=== PATIENT | female | born 1955 | race Two or more races ===

== ENCOUNTER 2016-12-31 08:21 | Day surgery (SDC) | payer OTHER ==
[2016-12-30 08:01] VITALS: BMI 50.5
[~2016-12-31 08:21] MED LIST: DEXAMETHASONE SOD PHOSPHATE 10 MG/ML 1 ML VIAL IV ONE; HYDROmorphone 1 MG/ML 1 ML SYRINGE IVP PRN; LACTATED RINGERS 1,000 ML IV SCH; LIDOCAINE 1% 20 ML VIAL (10MG/ML) FOR IV START INTRADERMA PRN; ONDANSETRON 4 MG/2 ML VIAL IVP ONE; Pre Op ABX Message 1 EACH MISC MISCELLANE ONE; SCOPOLAMINE 1.5MG/72HR PATCH TRANSDERM ONE
[2016-12-31] MEDS ORDERED: ALPRAZolam 0.25 MG TAB PO ONE (08:42)
[2016-12-31] MEDS ORDERED: LIDOCAINE 1% INJ 10MG/ML (20 ML MDV) SQ ONE (09:53)
[2016-12-31] MEDS ORDERED: HEPARIN SODIUM,PORCINE 5,000 UNIT/ML 1 ML VIAL SQ ONE (10:41)
[2016-12-31] MEDS ORDERED: METHYLENE BLUE 50 MG/10 ML AMPUL MISCELLANE ONE (11:01)
[2016-12-31] MEDS ORDERED: fentaNYL (PF) 50 MCG/ML 2 ML AMP ONE (11:15)
[2016-12-31] MEDS ORDERED: MIDAZOLAM 2 MG/2 ML VIAL ONE (11:15)
[2016-12-31] MEDS ORDERED: ePHEDrine 50 MG/ML 1 ML AMP ONE (11:15)
[2016-12-31] MEDS ORDERED: SUCCINYLCHOLINE CHLORIDE VIAL 200 MG/10 ML VIAL IV ONE (11:15)
[2016-12-31] MEDS ORDERED: HYDROmorphone (PF) 1 MG/ML ONE (11:15)
[2016-12-31] MEDS ORDERED: PROPOFOL 10 MG/ML 20 ML VIAL IV ONE (11:15)
[2016-12-31] MEDS: ceFAZolin 2 GM in SODIUM CHLORIDE 0.9% 100 ML IVPB ONE ×2 (11:20→11:42)
[2016-12-31] MEDS ORDERED: BUPIVACAINE (PF) 0.25% 30 ML VIAL SQ ONE (11:41)
[2016-12-31] MEDS ORDERED: LACTATED RINGERS 1,000 ML IV ONE (12:35)
[2016-12-31 13:13] VITALS: TEMP 98
[2016-12-31] MEDS ORDERED: KETOROLAC 30 MG/ML 1 ML VIAL IVP ONE (13:13)
[2016-12-31 13:47] VITALS: RESP 16
[2016-12-31 14:30] VITALS: BP 128/64; PULSE 98
--- NOTE | 2016-12-31 15:00 | NM ---
EXAMINATION TYPE: NM sentinel node injection DATE OF EXAM: 12/31/2016 COMPARISON: NONE HISTORY: Left breast cancer TECHNIQUE AND FINDINGS: The procedure immediately following the wire localization. The procedure of s entinel lymph node injection was explained to the patient. The benefits, alternatives, and risks wer e discussed. An informed consent was then obtained. Overlying skin is cleaned with sterile alcohol. Lidocaine buffered with bicarbonate was used as anes thetic into the skin and subcutaneous tissue surrounding the nipple. Following this, 538 uCi Tc 99m Filtered Sulfur Colloid was injected into 4 equivalent doses at 12, 3, 6, and 9:00 position surroundi ng the left nipple intradermally. The injection sites were massaged by nuclear technician for 10 minutes after injection. T he patient tolerated the procedure well without any immediate complication. The patient was kept in the radiology department for short stay after the procedure and then taken to surgery. IMPRESSION: Left breast radiotracer injection for sentinel node localization as above.
--- NOTE | 2017-01-02 10:43 | P.OP ---
Date of Procedure: 12/31/16 Preoperative Diagnosis: Infiltrating ductal carcinoma of the left breast. Postoperative Diagnosis: Infiltrating ductal carcinoma left breast with the negative left axillary sentinel lymph node for metastases. Procedure(s) Performed: Left breast lumpectomy with needle localization left axillary sentinel lymph node biopsy. Implants: Anesthesia: DAVIEA Surgeon: Noah Carlos Estimated Blood Loss (ml): 50 Pathology: other (Left breast mass and left axillary sentinel lymph node) Condition: stable Disposition: PACU Indications for Procedure: Invasive left breast CA by mammotome core biopsy. Operative Findings: Left breast the Ca for left axillary sentinel lymph node for metastases. Description of Procedure: With the patient supine the left breast chest wall and axilla and upper arm were prepped with Betadine and draped. The left axillary sentinel lymph node was identified with the [place] counter. Local anesthetic was infiltrated into the overlying skin and subcutaneous tissues. A vertical incision was made the over to site and deepened through the copious subcutaneous fat. The procedure was a little difficult because of her obesity. Eventually identified evidence of any significant background count. Frozen section revealed no evidence of metastatic disease. The wound was closed with interrupted 4-0 Vicryl for the subcutaneous tissues and 4-0 Monocryl subcuticular suture for the skin. She was turned to the breast. Local anesthetic was infiltrated at the wire insertion site. The lesion was located in the upper outer quadrant at around the 2 o'clock position. Oblique incision was made at the wire insertion site and deepened through the skin and subcutaneous tissues. Wide excision of the breast tissue around the wire was accomplished. Specimen mammography confirmed the abnormality within the specimen. Good hemostasis was good and the field was dry. Clips were placed circumferentially in the bed of the tumor site. Was then achieved with interrupted 4-0 Vicryl for the subcutaneous tissues and the portal Monocryl subcuticular suture and Steri-Strips for both sites. Pressure dressing was then applied.
--- NOTE | 2017-01-05 16:10 | MM ---
EXAMINATION TYPE: MG pre op needle loc LT DATE OF EXAM: 12/31/2016 COMPARISON: 10/13/2016 mammogram CLINICAL HISTORY: Abnormal mammogram TECHNIQUE: Needle localization with wire placement and surgical excision of area of concern in the left breast. FINDINGS: The procedure of needle localization with wire placement and than surgical excision was explained to the patient. Benefits, alternatives, and risks were discussed. An informed consent was then obtained. There appear to be clip migration from the location of the biopsy. The targeted biopsy site was utilized as the target for this needle localization. Nondisplaced the clip somewhat away from needle localization. The shortest pathway for procedure was chosen. Shortest pathway was lateral approach. The overlying skin was prepped and draped in usual sterile fashion. Lidocaine buffered with bicarbonate was used as anesthetic into the skin and subcutaneous tissue up to the level of area of concern. A 9 cm needle was used. It was placed via a lateral approach under mammographic guidance. Subsequent 90 degrees mammogram show the needle to be in satisfactory position relative to the targeted area. At this point, wire was placed and the needle was withdrawn. The wire was fixed to patient's skin. Images were marked for surgeon. The patient tolerated the procedure well without any immediate complication. The patient was kept in the radiology department for short stay after the procedure and then taken to surgery for surgical excision. Targeted density and wire are identified in specimen mammogram. The clip is within the specimen. The patient was kept in hospital for short stay after the procedure and then discharged home in stable condition. IMPRESSION: 1. Successful wire localization and excision. This includes the core marker and the area targeted prior biopsy. Pathology Results: Malignant A. LYMPH NODE, SENTINEL NODE #1, BIOPSY: LYMPH NODE NEGATIVE FOR METASTASIS. CYTOKERATIN 7 AND LOUISE IMMUNOHISTOCHEMICAL STAINS ARE CONFIRMATORY (CONTROLS APPROPRIATE). B. BREAST, LEFT, IMAGE GUIDED WIRE LOCALIZATION AND RESECTION: BIOPSY SITE CHANGE WITH RESIDUAL INVASIVE DUCTAL CARCINOMA AND DUCT CARCINOMA IN SITU. PROLIFERATIVE FIBROCYSTIC CHANGE WITH FOCAL DUCT ECTASIA. Recommendation Appropriate oncologic management. MTDD
--- NOTE | 2017-01-05 16:13 | MM ---
EXAMINATION TYPE: MG surgical specimen LT DATE OF EXAM: 12/31/2016 COMPARISON: 12/31/2016 targeting mammogram HISTORY: Previous abnormal biopsy results TECHNIQUE: Single specimen mammogram FINDINGS: The area targeted is within the specimen. The surgical clip is within the specimen. The wire and tip are within the specimen. IMPRESSION: 1. Successful excision from wire localization. Recommendation Appropriate oncologic treatment. MTDD
== END 2016-12-31 14:36 | disposition home or self-care (01) ==
LOC: OR 08:21
PROVIDERS: ATTEND Surgery
DX: C50.412 Malignant neoplasm of upper-outer quadrant of left female breast (principal); I10 Essential (primary) hypertension; E78.5 Hyperlipidemia, unspecified; G47.33 Obstructive sleep apnea (adult) (pediatric); Z99.89 Dependence on other enabling machines and devices; E11.9 Type 2 diabetes mellitus without complications; Z79.84 Long term (current) use of oral hypoglycemic drugs; F32.9 Major depressive disorder, single episode, unspecified; Z79.899 Other long term (current) drug therapy
CPT/HCPCS: 76098; 19281; 38792; 19301; 38500; A9541; J2250; J0330; J1644; J1100; J0690; J2405; J2001; J3010; J1885; J1170; J2704; 88307; 88331; 88341; 88342

== ENCOUNTER 2017-01-14 09:45 | Day surgery (SDC) | payer OTHER ==
[2017-01-12 08:35] VITALS: BMI 50.3
[~2017-01-14 09:45] MED LIST changes: -LIDOCAINE 1% 20 ML VIAL (10MG/ML) FOR IV START INTRADERMA PRN; +MIDAZOLAM 2 MG/2 ML VIAL IV PRN; -Pre Op ABX Message 1 EACH MISC MISCELLANE ONE; +ceFAZolin 3 GM in SODIUM CHLORIDE 0.9% 100 ML IVPB ONE
[2017-01-14] MEDS ORDERED: LIDOCAINE 1% 20 ML VIAL (10MG/ML) FOR IV START INTRADERMA ONE (10:34)
[2017-01-14 10:46] LABS: Glucose,Whole Blood 116 mg/dL (75-99)
[2017-01-14] MEDS ORDERED: BUPIVACAIN-EPI 0.5%-1:200,000 30 ML VIAL SQ ONE (11:00)
[2017-01-14] MEDS ORDERED: ePHEDrine 50 MG/ML 1 ML AMP ONE (11:00)
[2017-01-14] MEDS ORDERED: fentaNYL (PF) 50 MCG/ML 2 ML AMP ONE (11:00)
[2017-01-14] MEDS ORDERED: LIDOCAINE 1% INJ 10MG/ML (20 ML MDV) ONE (11:00)
[2017-01-14] MEDS ORDERED: SUCCINYLCHOLINE CHLORIDE 100 MG/5 ML SYR IV ONE (11:00)
[2017-01-14] MEDS ORDERED: PROPOFOL 10 MG/ML 20 ML VIAL IV ONE (11:00)
[2017-01-14] MEDS ORDERED: MIDAZOLAM 2 MG/2 ML VIAL ONE (11:00)
--- NOTE | 2017-01-14 12:20 | P.OP ---
Date of Procedure: 01/14/17 Preoperative Diagnosis: Invasive ductal carcinoma of the left breast with the positive margins Postoperative Diagnosis: Same Procedure(s) Performed: Wide excision CA of the left breast upper outer quadrant. Implants: Anesthesia: DAVIEA Surgeon: Noah Carlos Estimated Blood Loss (ml): 20 Pathology: other (breast tissue) Disposition: PACU Indications for Procedure: The patient is a 61-year-old white female who had a left breast lumpectomy with sentinel node biopsy last week. Path report the confirmed invasive ductal carcinoma with DCIS with positive margins multiple areas. Wide excision was therefore recommended and informed consent was obtained procedure having being explained to her including potential complication particular bleeding infection hematoma seroma of possible need for further surgery if margins are still positive she understood and agree to proceed. Operative Findings: Previous biopsy cavity with some seroma fluid Description of Procedure: The left breast and chest wall were prepped with Betadine and draped after induction of general endotracheal anesthesia. Incision was made along the previous scar and wide excision of the breast tissue to include and around the previous biopsy cavity was excised down to the underlying muscle fascia. Ellipse of skin was also included. The wound was thoroughly irrigated. Hemostasis was good and the field was dry. Closure was then achieved with interrupted 4-0 Vicryl subcutaneous tissues and 4-0 Monocryl subcuticular suture and Steri-Strips for the skin. Pressure dressing was applied. All counts were correct. Blood loss was approximately 20 mL's. The patient remained stable was transferred to the recovery room in good and stable condition. Patient was discharged to home this afternoon. Diet high fiber. Home meds. Remove dressing in 2 days. Follow-up in the office in about a week. May shower in 2 days. Plan - Discharge Summary New Discharge Prescriptions: No Action buPROPion HCL [Wellbutrin XL] 300 mg PO DAILY Glimepiride [Amaryl] 2 mg PO AC-BRKFST metFORMIN HCL [Glucophage] 500 mg PO DAILY Levothyroxine Sodium [Synthroid] 0.2 mg PO DAILY Levothyroxine Sodium [Synthroid] 0.25 mg PO DAILY Atorvastatin [Lipitor] 10 mg PO HS Olmesartan/Amlodipin/Hcthiazid [Tribenzor 40-5-25 mg Tablet] 1 each PO DAILY Discharge Medication List Atorvastatin [Lipitor] 10 mg PO HS 12/30/16 [History] Glimepiride [Amaryl] 2 mg PO AC-BRKFST 12/30/16 [History] Levothyroxine Sodium [Synthroid] 0.2 mg PO DAILY 12/30/16 [History] Levothyroxine Sodium [Synthroid] 0.25 mg PO DAILY 12/30/16 [History] Olmesartan/Amlodipin/Hcthiazid [Tribenzor 40-5-25 mg Tablet] 1 each PO DAILY [History] buPROPion HCL [Wellbutrin XL] 300 mg PO DAILY 12/30/16 [History] metFORMIN HCL [Glucophage] 500 mg PO DAILY 12/30/16 [History]
[2017-01-14 12:29] VITALS: TEMP 97.2
[2017-01-14 12:41] LABS: Glucose,Whole Blood 129 mg/dL (75-99)
[2017-01-14] MEDS ORDERED: HYDROcodone/APAP 5-325MG 1 EACH TAB PO STA (13:17)
[2017-01-14 13:55] VITALS: RESP 20
[2017-01-14 14:17] VITALS: BP 134/70; PULSE 91
== END 2017-01-14 14:28 | disposition home or self-care (01) ==
LOC: OR 09:45
PROVIDERS: ATTEND Surgery
DX: C50.412 Malignant neoplasm of upper-outer quadrant of left female breast (principal); D05.12 Intraductal carcinoma in situ of left breast; N60.12 Diffuse cystic mastopathy of left breast; I10 Essential (primary) hypertension; E78.5 Hyperlipidemia, unspecified; E11.9 Type 2 diabetes mellitus without complications; G47.00 Insomnia, unspecified; F32.9 Major depressive disorder, single episode, unspecified; E89.0 Postprocedural hypothyroidism; Z79.84 Long term (current) use of oral hypoglycemic drugs; Z79.899 Other long term (current) drug therapy
CPT/HCPCS: 84132; 19301; J2250; J1100; J0690; J2405; J2001; J3010; J0330; J2704

== ENCOUNTER → 2019-02-27 | Outpatient (CLI) | payer MEDICARE, OTHER ==
--- NOTE | 2019-02-28 09:27 | MM ---
Reason for exam: additional evaluation requested from prior study. Last mammogram was performed 1 year and 1 month ago. History: Patient is postmenopausal and has history of breast cancer at age 61. Malignant MG pre op needle loc LT of the left breast, December 31, 2016. Lumpectomy of the left breast, December 31, 2016. Chemotherapy, 2017. Radiation therapy of the left breast, 2017. Taking antineoplastic beginning at age 61. Physical Findings: Nurse did not find any significant physical abnormalities on exam. MG 3D Diag Mammo W/Cad LENIN Bilateral CC, MLO, and XCCL view(s) were taken. CV view(s) were taken of the right breast. ML, CC with magnification, and ML with magnification view(s) were taken of the left breast. Prior study comparison: January 25, 2018, mammogram. October 13, 2016, mammogram. September 23, 2016, mammogram. There are scattered fibroglandular densities. There is surrounding fat necrosis around the left lumpectomy site and one linear adjacent calcification, 6 month follow up recommended. There are also grouped calcifications measuring 1.1cm in the left far upper outer quadrant, possibly DCIS in a lymph node or fat necrosis on magnification views. These appear pleomorphic but overall in a oval configuration. These results were verbally communicated with the patient and result sheet given to the patient on 02/27/19. ASSESSMENT: Suspicious, BI-RAD 4 RECOMMENDATION: Stereotactic core biopsy of the left breast. Called Dr. Xie with mammographic findings. Biopsy scheduled for 03/06/19 at 8:00. PRELIMINARY REPORT CALLED AND FAXED TO DR. XIE ON 02/27/19.
== END | disposition home or self-care (01) ==
LOC: RADMAMWWP 09:08
PROVIDERS: ATTEND Internal Medicine Hematology & Oncology
DX: Z08 Encounter for follow-up examination after completed treatment for malignant neoplasm (principal); Z85.3 Personal history of malignant neoplasm of breast
CPT/HCPCS: 77066; G0279; 77062

== ENCOUNTER → 2019-03-06 | Day surgery (SDC) | payer MEDICARE, OTHER ==
[2019-03-06 07:20] VITALS: RESP 16; BMI 46.0
[2019-03-06 09:53] VITALS: BP 128/74; PULSE 87; TEMP 98.2
--- NOTE | 2019-03-06 10:00 | MM ---
EXAMINATION TYPE: MG stereo VAD BX LT DATE OF EXAM: 03/06/2019 COMPARISON: Prior mammogram February 27, 2019 and older mammograms. CLINICAL HISTORY: History of left-sided breast cancer treated 2017 with new abnormal mammogram TECHNIQUE: Stereotactic guided core biopsy of left breast. FINDINGS: The procedure of stereotactic guided core biopsy was explained to the patient. Benefits, a lternatives, and risks were discussed. An informed consent was then obtained. The [facility] pathway for biopsy was chosen. [facility] pathway was lateral approach. I performed the localization, then performed the remainder of the procedure. Overlying skin is cleansed with Betadin e. Lidocaine is used as anesthetic into the skin and subcutaneous tissue. Lidocaine with epinephrine is used as anesthetic into the deeper tissue during sampling. A vacuum assisted biopsy gun was used t o obtain multiple core samples. The patient tolerated the procedure well without any immediate complication. The patient was kept in the radiology department for short stay after the procedure and then discharged home in stable condi tion. Targeted calcifications are identified in specimen mammogram. Post biopsy mammogram shows the clip to appear in satisfactory position relative to the targeted area of concern on the preprocedure images. IMPRESSION: SUCCESSFUL, UNCOMPLICATED STEREOTACTIC GUIDED CORE BIOPSY OF AREA OF CONCERN IN THE LEFT BREAST, FULL PATHOLOGY RESULTS TO FOLLOW. Intermediate index of suspicion noted at time of procedure. Suspect fat necrosis over newly developin g DCIS.
== END | disposition home or self-care (01) ==
LOC: RADMAMWWP 07:00
PROVIDERS: ATTEND Internal Medicine Hematology & Oncology
DX: D24.2 Benign neoplasm of left breast (principal); Z92.3 Personal history of irradiation; Z92.21 Personal history of antineoplastic chemotherapy; Z85.3 Personal history of malignant neoplasm of breast
CPT/HCPCS: 88305; 19081; A4648; J2001

== ENCOUNTER → 2019-06-12 | Outpatient (CLI) | payer MEDICARE, OTHER ==
--- NOTE | 2019-06-12 13:01 | BD ---
EXAMINATION TYPE: Axial Bone Density DATE OF EXAM: 06/12/2019 COMPARISON: 06.22.2017 CLINICAL HISTORY: 64 YR OLD FEMALE....ICD-10 CODE: 06.22.2017 Height: 64.5 Weight: 262 FRAX RISK QUESTIONS: NOTHING ADDITIONAL TO NOTE HERE RISK FACTORS HISTORY OF: Postmenopausal woman: YES, AT AGE 47 YRS OLD Hyperparathyroidism: NO Adrenal Insufficiency: NO MEDICATIONS: Prednisone or other steroids: ON AND OFF NOT REGULARLY Thyroid Medications: YES, SYNTHROID, 11 YRS Additional Medications: CALCIUM AND VIT D, BP MEDS, WELLBUTRIN, HX OF CHEMO AND RADIATION/LT BR CA, S TATIN FOR CHOLESTEROL, LETROZOLE Additional History: HX OF LT BR CANCER DECEMBER 2016 , CHOLESTEROL, HYPERTENSION EXAM MEASUREMENTS: Bone mineral densitometry was performed using the [employer] System. Bone mineral density as measured about the Lumbar spine is: ----- L1-L4(G/cm2): 1.245 T Score Values are as follows: ----- L1: 2.6 ----- L2: 0.1 ----- L3: 0.3 ----- L4: -0.4 ----- L1-L4: 0.5 Bone mineral density has: Decreased -10.1% since study of: 06.22.2017 Bone mineral density about the R hip (g/cm2): 0.890 Bone mineral density about the L hip (g/cm2): 0.892 T Score values are as follows: -----R Neck: -1.4 -----L Neck: -1.4 -----R Total: -0.9 -----L Total: -0.9 Bone mineral density has: Decreased -8.6% since study of: 06.22.2017 FRAX%s: THERE IS A 7.2% CHANCE FOR A MAJOR OSTEOPOROTIC FX AND A 0.6% FOR HIP.....PROBABILITY FOR F X IN 10 YRS TIME IMPRESSION: No evidence for osteoporosis or osteopenia at this time. NOTE: T-SCORE=SD OF THE YOUNG ADULT MEAN.
== END | disposition home or self-care (01) ==
LOC: RADBDWWP 10:20
PROVIDERS: ATTEND Internal Medicine Hematology & Oncology
DX: N95.1 Menopausal and female climacteric states (principal); C50.412 Malignant neoplasm of upper-outer quadrant of left female breast; Z79.890 Hormone replacement therapy
CPT/HCPCS: 77080

== ENCOUNTER → 2019-09-20 | Outpatient (CLI) | payer MEDICARE, OTHER ==
--- NOTE | 2019-09-20 15:05 | MM ---
Reason for exam: follow-up at short interval from prior study. Last mammogram was performed 7 months ago. History: Patient is postmenopausal and has history of breast cancer at age 61. Benign MG stereo VAD BX LT of the left breast, March 06, 2019. Malignant MG pre op needle loc LT of the left breast, December 31, 2016. Lumpectomy of the left breast, December 31, 2016. Chemotherapy, 2017. Radiation therapy of the left breast, 2017. Taking antineoplastic beginning at age 61. Took other hormone for 2 years 6 months. Physical Findings: Nurse did not find any significant physical abnormalities on exam. MG 3D Diag Mammo W/Cad LT CC and MLO view(s) were taken of the left breast. Prior study comparison: February 27, 2019, bilateral MG 3d diag mammo w/cad LENIN. January 25, 2018, mammogram. There are scattered fibroglandular densities. Centrally lucent fat necrosis at and adjacent to (lateral) lumpectomy site. Post therapy change on the left. Post biopsy change of the left upper outer quadrant at far posterior depth. These results were verbally communicated with the patient and result sheet given to the patient on 09/20/19. ASSESSMENT: Benign, BI-RAD 2 RECOMMENDATION: Follow-up diagnostic mammogram of both breasts in 6 months. Back on schedule for February 2020.
== END | disposition home or self-care (01) ==
LOC: RADMAMWWP 12:44
PROVIDERS: ATTEND Internal Medicine Hematology & Oncology
DX: Z08 Encounter for follow-up examination after completed treatment for malignant neoplasm (principal); Z85.3 Personal history of malignant neoplasm of breast
CPT/HCPCS: 77065; G0279; 77061

== ENCOUNTER → 2020-03-07 | Outpatient (CLI) | payer MEDICARE, OTHER ==
--- NOTE | 2020-03-07 14:06 | MM ---
Reason for exam: additional evaluation requested from prior study. Last mammogram was performed 6 months ago. History: Patient is postmenopausal and has history of breast cancer at age 61. Benign MG stereo VAD BX LT of the left breast, March 06, 2019. Malignant MG pre op needle loc LT of the left breast, December 31, 2016. Lumpectomy of the left breast, December 31, 2016. Chemotherapy, 2017. Radiation therapy of the left breast, 2017. Taking antineoplastic beginning at age 61. Took other hormone for 2 years 6 months. Physical Findings: Nurse did not find any significant physical abnormalities on exam. MG 3D Diag Mammo W/Cad LENIN Bilateral CC, MLO, and XCCL view(s) were taken. Prior study comparison: September 20, 2019, left breast MG 3d diag mammo w/cad LT. February 27, 2019, bilateral MG 3d diag mammo w/cad LENNI. There are scattered fibroglandular densities. Finding #1: There is skin thickening and architectural distortion in the upper outer quadrant of the left breast. Finding #2: There are typically benign calcifications. No significant changes in finding since September 20, 2019 and February 27, 2019. These results were verbally communicated with the patient and result sheet given to the patient on 03/07/20. ASSESSMENT: Benign, BI-RAD 2 RECOMMENDATION: Follow-up diagnostic mammogram of both breasts in 1 year.
== END | disposition home or self-care (01) ==
LOC: RADMAMWWP 12:44
PROVIDERS: ATTEND Internal Medicine Hematology & Oncology
DX: R92.8 Other abnormal and inconclusive findings on diagnostic imaging of breast (principal); Z85.3 Personal history of malignant neoplasm of breast
CPT/HCPCS: 77066; G0279; 77062

== ENCOUNTER → 2021-03-09 | Outpatient (CLI) | payer MEDICARE, OTHER ==
--- NOTE | 2021-03-09 11:25 | MM ---
Reason for exam: additional evaluation requested from prior study. Last mammogram was performed 1 year ago. History: Patient is postmenopausal, has history of breast cancer at age 61, and history of other cancer. Benign MG stereo VAD BX LT of the left breast, March 06, 2019. Malignant MG pre op needle loc LT of the left breast, December 31, 2016. Lumpectomy of the left breast, December 31, 2016. Chemotherapy, 2017. Radiation therapy of the left breast, 2017. Taking antineoplastic beginning at age 61. Took other hormone for 2 years 6 months. Physical Findings: Nurse did not find any significant physical abnormalities on exam. MG 3D Diag Mammo W/Cad LENIN Bilateral CC and MLO view(s) were taken. Prior study comparison: March 07, 2020, bilateral MG 3d diag mammo w/cad LENIN. September 20, 2019, left breast MG 3d diag mammo w/cad LT. There are scattered fibroglandular densities. Stable post operative lumpectomy changes left breast. No significant new findings when compared with previous films. These results were verbally communicated with the patient and result sheet given to the patient on 03/09/21. ASSESSMENT: Benign, BI-RAD 2 RECOMMENDATION: Follow-up diagnostic mammogram of both breasts in 1 year.
== END | disposition home or self-care (01) ==
LOC: RADMAMWWP 10:42
PROVIDERS: ATTEND Internal Medicine Hematology & Oncology
DX: Z08 Encounter for follow-up examination after completed treatment for malignant neoplasm (principal); Z85.3 Personal history of malignant neoplasm of breast
CPT/HCPCS: 77066; G0279; 77062

== ENCOUNTER → 2021-07-20 | Outpatient (CLI) | payer MEDICARE, OTHER ==
--- NOTE | 2021-07-20 14:24 | BD ---
EXAMINATION TYPE: Axial Bone Density DATE OF EXAM: 07/20/2021 COMPARISON: 06.12.2019 CLINICAL HISTORY: 66 YR OLD FEMALE.........ICD-10 CODE: Z79.890 MENOPAUSAL Height: 61.5 Weight: 274 FRAX RISK QUESTIONS: NOTHING ADDITIONAL TO ADD HERE RISK FACTORS HISTORY OF: Postmenopausal woman: YES, AT AGE 47 YRS OLD Hyperparathyroidism: NO Adrenal Insufficiency: NO MEDICATIONS: Thyroid Medications: YES, SYNTHROID FOR ABOUT 13 YRS Additional Medications: CALCIUM AND VIT D, BP MEDS, WELLBUTRIN, HX OF CHEMO AND RADIATION, LT BR CA NCER, STATIN FOR CHOLESTEROL, LETROZOLE, Additional History: HX OF LT BREAST CANCER, ANXIETY, CHOLESTEROL, EXAM MEASUREMENTS: Bone mineral densitometry was performed using the [employer] System. Bone mineral density as measured about the Lumbar spine is: ----- L1-L4(G/cm2): 1.190 T Score Values are as follows: ----- L1: 1.5 ----- L2: -0.7 ----- L3: -0.5 ----- L4: -0.1 ----- L1-L4: 0.1 Bone mineral density has: Decreased -3.9 since study of: 06.12.2019 Bone mineral density about the R hip (g/cm2): 0.831 Bone mineral density about the L hip (g/cm2): 0.821 T Score values are as follows: -----R Neck: -1.7 -----L Neck: -1.7 -----R Total: -1.4 -----L Total: -1.5 Bone mineral density has: Decreased -7.3 since study of: 06.12.2019 FRAX%S: THERE IS A 8.1% CHANCE FOR A MAJOR OSTEOPOROTIC FX AND A 1.0% FOR HIP.......PROBABILITY FO R FX IN 10 YRS TIME IMPRESSION: Osteopenia (T Score between -2.5 and -1) remains present. Bone density is decreased from prior. There remains slightly increased risk of fracture and the patient may be considered for treatment. Re-Screen 2-5 years. NOTE: T-SCORE=SD OF THE YOUNG ADULT MEAN.
== END | disposition home or self-care (01) ==
LOC: RADBDWWP 13:09
PROVIDERS: ATTEND Internal Medicine Hematology & Oncology
DX: C50.412 Malignant neoplasm of upper-outer quadrant of left female breast (principal); M85.80 Other specified disorders of bone density and structure, unspecified site; Z79.890 Hormone replacement therapy
CPT/HCPCS: 77080

== ENCOUNTER 2022-03-16 13:06 | Day surgery (SDC) | payer MEDICARE, OTHER ==
[2022-03-15 14:54] VITALS: BMI 48.6
[~2022-03-16 13:06] MED LIST changes: +ACETAMINOPHEN TAB 500 MG TAB PO PRN; -DEXAMETHASONE SOD PHOSPHATE 10 MG/ML 1 ML VIAL IV ONE; +DEXAMETHASONE SOD PHOSPHATE 4 MG/ML 1 ML VIAL IV ONE; +HEPARIN SODIUM,PORCINE/PF 5,000 UNIT/0.5 ML SYRINGE SQ PRN; +HYDROmorphone 0.5 MG/0.5 ML SYRINGE IVP PRN; -HYDROmorphone 1 MG/ML 1 ML SYRINGE IVP PRN; +Pre Op ABX Message 1 EACH MISC MISCELLANE ONE; -SCOPOLAMINE 1.5MG/72HR PATCH TRANSDERM ONE; -ceFAZolin 3 GM in SODIUM CHLORIDE 0.9% 100 ML IVPB ONE
[2022-03-16] MEDS ORDERED: BUPIVACAIN-EPI 0.25%-1:200,000 30 ML VIAL SQ ONE ×2 (14:16→14:57)
[2022-03-16] MEDS ORDERED: ePHEDrine 50 MG/ML 1 ML VIAL ONE (14:17)
[2022-03-16] MEDS ORDERED: LIDOCAINE 2% INJ 20 MG/ML (2 ML VIAL) ONE (14:17)
[2022-03-16] MEDS ORDERED: PHENYLEPHRINE-0.9% NACL SYG 1,000 MCG/10 ML SYRINGE ONE (14:17)
[2022-03-16] MEDS ORDERED: PROPOFOL 10 MG/ML 20 ML VIAL IV ONE (14:17)
[2022-03-16] MEDS ORDERED: fentaNYL (PF) 50 MCG/ML 2 ML AMP ONE (14:17)
[2022-03-16] MEDS ORDERED: MIDAZOLAM 2 MG/2 ML VIAL ONE (14:17)
[2022-03-16] MEDS ORDERED: SODIUM CHLORIDE 0.9% 100 ML with ceFAZolin 2,000 MG IV ONE ×2 (14:40)
[2022-03-16] MEDS ORDERED: LACTATED RINGERS 1,000 ML IV ONE (15:08)
[2022-03-16] MEDS ORDERED: traMADol 50 MG TAB PO PRN (15:18)
[2022-03-16] MEDS ORDERED: NALOXONE 0.4 MG/ML 1 ML VIAL IV PRN (15:18)
--- NOTE | 2022-03-16 15:18 | P.OP ---
Date of Procedure: 03/16/22 Procedure(s) Performed: PREOPERATIVE DIAGNOSIS: Right thigh mass POSTOPERATIVE DIAGNOSIS: Same PROCEDURE: Excision right thigh mass with intermediate closure SURGEON: Alex EBL: 25 mL ANESTHESIA: Gen. COMPLICATIONS: None OPERATIVE PROCEDURE: Patient placed in the operating table in the supine position. The patient was placed under general anesthesia. Right anterior thigh prepped and draped sterilely. An elliptical incision was made in a horizontal fashion around the horizontally shaped mass in the distal anterior lateral thigh on the right. This measured 5 x 4 cm in size. The skin incision was made using the scalpel and the subcutaneous tissues were divided using both the scalpel and electrocautery. I felt that grossly the inferior margin was close and at that time took an additional inferior margin including both skin and full-thickness subcutaneous tissues down to the fascia. The original specimen was painted on the inferior margin a green color. The new margin on the newly obtained inferior margin was painted that same color. These were both sent to pathology for permanent sectioning. Flaps are raised superiorly and inferiorly above the level of the fascia. The subcutaneous tissues were then closed using interrupted 20 and 3-0 Vicryl sutures. The skin was closed using a running 4-0 nylon suture. Sterile dressings were then applied. DISPOSITION: Stable to recovery room
[2022-03-16 15:28] VITALS: TEMP 97.1
[2022-03-16 15:48] VITALS: RESP 16
[2022-03-16 15:56] VITALS: PULSE 90
[2022-03-16 16:14] VITALS: BP 109/86
== END 2022-03-16 16:30 ==
LOC: OR 13:06
PROVIDERS: ATTEND Surgery
DX: R22.41 Localized swelling, mass and lump, right lower limb (principal); I10 Essential (primary) hypertension; E11.69 Type 2 diabetes mellitus with other specified complication; E78.5 Hyperlipidemia, unspecified; G47.33 Obstructive sleep apnea (adult) (pediatric); E03.9 Hypothyroidism, unspecified; Z79.899 Other long term (current) drug therapy; Z79.890 Hormone replacement therapy; Z85.3 Personal history of malignant neoplasm of breast
CPT/HCPCS: 27339; 88342; 88307; 88341; J2250; J1100; J2405; J0690; J3010; J2370; J2704; J1644; J2001

== ENCOUNTER → 2022-03-17 | Outpatient (CLI) | payer MEDICARE, OTHER ==
--- NOTE | 2022-03-18 08:05 | MM ---
Reason for Exam: Screening (asymptomatic). Last screening mammogram was performed 12 month(s) ago. Patient History: Menarche at age 13. Postmenopausal. Breast cancer, age 61. Other cancer. Previous chest radiation therapy at age 61. Previous chemotherapy at age 61. 12/31/2016, Lumpectomy on the Left side. 03/06/2019, Benign Core Biopsy on the left side. 12/31/2016, Malignant Core Biopsy on the left side. 2017, Chemotherapy. 2016, Radiation Therapy on the left side. Prior Study Comparison: 09/23/2016 Screening Mammogram, Unknown. 10/13/2016 Screening Mammogram, Unknown. 01/25/2018 Screening Mammogram, Unknown. 02/27/2019 Bilateral Diagnostic Mammogram, [facility]. 09/20/2019 Left Diagnostic Mammogram, [facility]. 03/07/2020 Bilateral Diagnostic Mammogram, [facility]. 03/09/2021 Bilateral Diagnostic Mammogram, [facility]. Tissue Density: There are scattered fibroglandular densities. Findings: Analyzed By CAD. Persistent distortion with surgical clips, dystrophic calcification, and skin retraction upper outer aspect left breast corresponding to posttreatment changes. There is no suspicious group of microcalcifications or new suspicious mass in either breast. Overall Assessment: Probably benign, BI-RAD 3 Management: Screening Mammogram of both breasts in 1 year. A clinical breast exam by your physician is recommended on an annual basis and results should be correlated with mammographic findings. Electronically signed and approved by: eLno Navarro M.D.
== END | disposition home or self-care (01) ==
LOC: RADMAMWWP 09:52
PROVIDERS: ATTEND Internal Medicine Hematology & Oncology
DX: Z12.31 Encounter for screening mammogram for malignant neoplasm of breast (principal)
CPT/HCPCS: 77063; 77067

== ENCOUNTER → 2022-04-21 | Outpatient (CLI) | payer MEDICARE, OTHER ==
--- NOTE | 2022-04-21 18:19 | CT ---
EXAMINATION TYPE: CT ChestAbdPelvis w con DATE OF EXAM: 04/21/2022 INDICATION: obs for mets. hx of sarcoma and L breast ca COMPARISON: Mammogram 03/09/2021 CT DLP: 3049.20 mGycm CONTRAST: Performed with Oral Contrast and with IV Contrast, patient injected with 70 mL of Isovue 300. TECHNIQUE: Axial images at 5 mm thick sections. Reconstructed images in the coronal plane. Delayed images through the kidneys. FINDINGS: CT CHEST: Soft tissues of the chest abdomen and pelvis appear normal. 1.2 cm spiculated density withi n the left axillary region appears to be postsurgical in nature. Portion of the thyroid visualized is normal. No suspicious lung nodules or focal infiltrates are present. No enlarged mediastinal or hilar adenopathy is evident. The ascending aorta diameter at the level of the main pulmonary artery is 3.7 cm. The main pulmonary artery diameter at the bifurcation is 3.6 cm. Very minimal coronary artery calcifications present. CT ABDOMEN: Liver: Normal. Note is made of loops of bowel anterior to the liver which can contribute to abdominal pain. Spleen: Normal Pancreas: There is fatty infiltration to the atrophic pancreas. Adrenal glands: The adrenal glands are normal. Gallbladder: Normal Kidneys: No masses are evident. No hydronephrosis is present. No cysts are present. Delayed images were obtained through the kidneys, which remain unremarkable. Aorta: Vascular calcification is within the aorta. Inferior vena cava: Normal. CT PELVIS: Loops of bowel within the abdomen and pelvis are normal. Mild diverticulosis without acute diverticul itis is present within the sigmoid colon There are loops of bowel which are incompletely distended or lack oral contrast limiting their evaluation. Appendix: Normal as visualized. Urinary bladder: Normal. Genitourinary structures: Uterus appears normal for the patient's age. The adnexa appear unremarkable . Osseous structures: No suspicious lytic or sclerotic lesions. Facet hypertrophy is within the lumbar spine. IMPRESSIONS: 1. No suspicious changes to suggest recurrent or metastatic neoplasm. 2. Mild diverticulosis without acute diverticulitis.
== END | disposition home or self-care (01) ==
LOC: RADCTMAIN 10:55
PROVIDERS: ATTEND Internal Medicine Hematology & Oncology
DX: K57.90 Diverticulosis of intestine, part unspecified, without perforation or abscess without bleeding (principal)
CPT/HCPCS: 82565; 84520; 71260; 74177; 36415; Q9967

== ENCOUNTER → 2022-10-29 | Outpatient (CLI) | payer MEDICARE, OTHER ==
--- NOTE | 2022-10-29 17:18 | CT ---
EXAMINATION TYPE: CT ChestAbdPelvis wo con CT DLP: 1944.6 mGycm, Automated exposure control for dose reduction was used. DATE OF EXAM: 10/29/2022 3:14 PM COMPARISON: CT chest abdomen pelvis 04/21/2022. CLINICAL INDICATION:Female, 67 years old with history of C49.9; PHH, F/U scan for hx of breast cancer . Technique: Multiple axial images of the chest, abdomen, and pelvis were obtained without administrati on of contrast. Two-dimensional coronal and sagittal reconstructions were obtained. Findings: CHEST: Evaluation is limited due to lack of intravenous contrast. LUNGS/ PLEURA: No pleural effusion, pneumothorax, or focal consolidation. Linear scarring or atelecta sis within the bilateral lower lobes. No suspicious pulmonary nodule or mass. AIRWAY: Patent and unremarkable.. HEART: Mildly enlarged. No pericardial effusion.. Mild coronary arterial calcifications. Mitral annul us calcifications.. MEDIASTINUM: No gross evidence of adenopathy. VASCULATURE: No aortic aneurysm. MUSCULOSKELETAL: No acute osseous abnormalities. No aggressive osseous lesion. SOFT TISSUES/LYMPH NODES: No axillary adenopathy. Stable postsurgical changes of the left breast. LOWER NECK: No significant findings. ABDOMEN: ABDOMEN LIVER: Unremarkable noncontrast appearance. GALLBLADDER AND BILE DUCTS: Unremarkable. PANCREAS: Fatty infiltration. SPLEEN: Unremarkable noncontrast appearance. ADRENAL GLANDS: Unremarkable noncontrast appearance. KIDNEYS AND URETERS: No evidence of hydronephrosis or renal calculus. Similar nonspecific bilateral p erinephric fat stranding. PELVIS BLADDER: Incompletely distended but grossly unremarkable. REPRODUCTIVE: Unremarkable noncontrast appearance. ABDOMEN & PELVIS STOMACH AND BOWEL: Stomach and duodenum are unremarkable. Distal colonic diverticulosis without evide nce for acute diverticulitis. The appendix is within normal limits. No evidence of bowel obstruction. PERITONEUM: No evidence of pneumoperitoneum or free fluid. VASCULATURE: Mild atherosclerotic calcifications are present throughout the abdominal aorta and its b ranches. No abdominal aortic aneurysm. MUSCULOSKELETAL: No acute osseous abnormalities . Multilevel degenerative changes of visualized spine . Grade 1 anterolisthesis of L3 on L4. No aggressive osseous lesion. LYMPH NODES: No gross evidence for lymphadenopathy. SOFT TISSUE/ABDOMINAL WALL: Small fat filled umbilical hernia. IMPRESSION: 1. No evidence for recurrent tumor or metastasis within the chest, abdomen and pelvis within limitati ons of a noncontrast exam. 2. Colonic diverticulosis without evidence for acute diverticulitis.
== END | disposition home or self-care (01) ==
LOC: RADCTMAIN 14:50
PROVIDERS: ATTEND Internal Medicine Hematology & Oncology
DX: C50.412 Malignant neoplasm of upper-outer quadrant of left female breast (principal); M85.9 Disorder of bone density and structure, unspecified; I10 Essential (primary) hypertension; K57.30 Diverticulosis of large intestine without perforation or abscess without bleeding
CPT/HCPCS: 71250; 74176

== ENCOUNTER → 2023-03-18 | Outpatient (CLI) | payer MEDICARE, OTHER ==
--- NOTE | 2023-03-22 22:49 | MM ---
Reason for Exam: Screening (asymptomatic). Last mammogram was performed 1 year(s) and 1 month(s) ago. Patient History: Menarche at age 13. Patient has no children. Postmenopausal. Breast cancer, left, age 61. Other cancer. Previous chest radiation therapy at age 61. Previous chemotherapy at age 61. 12/31/2016, Lumpectomy on the Left side. 03/06/2019, Benign Core Biopsy on the left side. 12/31/2016, Malignant Core Biopsy on the left side. 2016, Chemotherapy. 2016, Radiation Therapy on the left side. Prior Study Comparison: 03/07/2020 Bilateral Diagnostic Mammogram, [facility]. 03/09/2021 Bilateral Diagnostic Mammogram, [facility]. 03/17/2022 Bilateral MG 3D screening mammo w/cad, [facility]. Tissue Density: There are scattered fibroglandular densities. Findings: Analyzed By CAD. Postsurgical and posttreatment changes left breast. There is no suspicious group of microcalcifications or new suspicious mass in either breast. Overall Assessment: Benign, BI-RAD 2 Management: Screening Mammogram of both breasts in 1 year. . Patient should continue monthly self-breast exams. A clinical breast exam by your physician is recommended on an annual basis. This exam should not preclude additional follow-up of suspicious palpable abnormalities. Electronically signed and approved by: Cody Smith M.D. Radiologist
== END | disposition home or self-care (01) ==
LOC: RADMAMWWP 10:43
PROVIDERS: ATTEND Internal Medicine Hematology & Oncology
DX: Z12.31 Encounter for screening mammogram for malignant neoplasm of breast (principal); Z78.0 Asymptomatic menopausal state; Z85.3 Personal history of malignant neoplasm of breast
CPT/HCPCS: 77063; 77067

== ENCOUNTER → 2023-05-05 | Outpatient (CLI) | payer MEDICARE, OTHER ==
--- NOTE | 2023-05-05 14:32 | CT ---
EXAMINATION TYPE: CT ChestAbdPelvis wo con DATE OF EXAM: 05/05/2023 COMPARISON: 10/29/2022. 50 HISTORY: f/u breast ca CT DLP: 1870.1mGycm Unenhanced CT of the Chest, Abdomen and Pelvis Unenhanced CT of the chest ,abdomen and pelvis is performed. The lack of intravenous contrast limits evaluation of the solid and hollow viscera. Oral contrast: Yes CT Chest: LUNGS: The lungs are clear and free of infiltrate or atelectasis. No pulmonary nodule or mass is det ected. No pleural effusion or CT evidence of interstitial lung disease. MEDIASTINUM: Thoracic aorta is of normal caliber. The heart is not enlarged. No evidence for media stinal mass or adenopathy. HILAR STRUCTURES: No evidence for mass. No hilar adenopathy is appreciated. OTHER: Left breast lumpectomy change noted. CONTRAST CT ABDOMEN AND PELVIS: LIVER/GB: No calcified gallstones. No space occupying hepatic lesion. Biliary tree is of normal ca liber. PANCREAS: No inflammation. No distinct mass. SPLEEN: No splenic enlargement. No lesion seen. ADRENALS: No nodule. No thickening. KIDNEYS/BLADDER: No hydronephrosis. No nephrolithiasis. No distinct renal mass. BOWEL: Normal appendix. Normal bowel caliber. No inflammation. Sigmoid diverticulosis without diver ticulitis. GENITAL ORGANS: No gross abnormality. LYMPH NODES: No greater than 1cm abdominal or pelvic lymph nodes are appreciated. AORTA: No significant abnormality. OSSEOUS STRUCTURES: Mild scattered degenerative changes seen. OTHER: No significant additional abnormality is seen. IMPRESSION: 1. No evidence of metastatic disease to the chest abdomen or pelvis.
== END | disposition home or self-care (01) ==
LOC: RADCTMAIN 12:46
PROVIDERS: ATTEND Internal Medicine Hematology & Oncology
DX: C50.412 Malignant neoplasm of upper-outer quadrant of left female breast (principal); M85.9 Disorder of bone density and structure, unspecified; I10 Essential (primary) hypertension
CPT/HCPCS: 71250; 74176

== ENCOUNTER → 2023-08-02 | Outpatient (CLI) | payer MEDICARE, OTHER ==
--- NOTE | 2023-08-02 19:15 | CT ---
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 R/O mets. TECHNIQUE: Contiguous axial scanning of the chest, abdomen, and pelvis without IV contrast. Coronal a nd sagittal reconstructions performed. CT DLP: 1934.0 mGycm Automated exposure control for dose reduction was used. FINDINGS: Chest: Stable 2.1 cm spiculated density central left breast likely postsurgical change. The heart and upper limits of normal in size without pericardial effusion. Aorta normal caliber with metatarsals are intact. No thoracic lymphadenopathy by size criteria. Large caliber to the main right and left pulmonary arteries measuring 2.9 cm suggesting underlying pu lmonary arterial hypertension. Strandy atelectasis or scarring at the lung bases. No consolidation or pleural effusion. ABDOMEN: Tiny hiatal hernia. Noncontrast appearance of the liver, gallbladder, adrenal glands, kidneys, spleen, and atrophic pancr eas show no gross abnormality. No dilated small bowel, free fluid, or free air. No mesenteric or retroperitoneal adenopathy. Normal appendix. Oral contrast material has progressed into the sigmoid colon. There are left-sided c olonic diverticulosis, greatest in the sigmoid colon. No pericolic inflammatory change. Pelvis: Bladder urine distended. Uterus anteverted. Both ovaries are visualized. No abnormal fluid collection in the pelvis or pelvic lymphadenopathy. Bones: Moderate degenerative change at the hips. Hypertrophic facet arthropathy mid to lower lumbar spine. D courtney within the mid to lower thoracic spine. Degenerative grade 1 anterolisthesis L3-L4 and L4-L5. No osseous destructive process. IMPRESSION: 1. STABLE POST SURGICAL CHANGE LEFT BREAST. NO EVIDENCE FOR METASTATIC DISEASE WITHIN THE CHEST, ABDO MEN, OR PELVIS. 2. LEFT-SIDED COLONIC DIVERTICULOSIS WITHOUT ACUTE DIVERTICULITIS. POSSIBLE UNDERLYING PULMONARY HYPE RTENSION. DISH THROUGHOUT THE MID AND LOWER THORACIC SPINE.
== END | disposition home or self-care (01) ==
LOC: RADCTMAIN 14:35
PROVIDERS: ATTEND Internal Medicine Hematology & Oncology
DX: K57.30 Diverticulosis of large intestine without perforation or abscess without bleeding (principal); C50.412 Malignant neoplasm of upper-outer quadrant of left female breast; I10 Essential (primary) hypertension; M85.9 Disorder of bone density and structure, unspecified; Z98.890 Other specified postprocedural states
CPT/HCPCS: 71250; 74176

== ENCOUNTER → 2023-08-22 | Outpatient (CLI) | payer MEDICARE, OTHER ==
--- NOTE | 2023-08-22 11:48 | CT ---
EXAMINATION TYPE: CT left knee - [facility] Protocol DATE OF EXAM: 08/22/2023 COMPARISON: None HISTORY: left [facility] CT DLP: [address] of the lower extremity for [facility] protocol FINDINGS: Left hip: Mild degenerative narrowing left hip joint space. No fracture or bony lesion. Left knee: Severe degenerative narrowing medial tibial joint space with [id number] noted. Subchondr al sclerosis and cyst formation. Lateral tibiofemoral joint space. Severe degenerative narrowing herndon llofemoral joint space. Multicompartment spur formation. Left ankle: Within normal limits IMPRESSION: PREOPERATIVE JAK ON PLANNING
== END | disposition home or self-care (01) ==
LOC: RADCTMAIN 10:52
PROVIDERS: ATTEND Orthopaedic Surgery
DX: Z01.818 Encounter for other preprocedural examination (principal); M17.0 Bilateral primary osteoarthritis of knee

== ENCOUNTER → 2023-08-25 | Outpatient (CLI) | payer MEDICARE, OTHER ==
[2023-08-25 13:46] LABS: Partial Thromboplastin Time 24.6 sec (22.0-30.0)
[2023-08-25 16:49] LABS: HCT 38.9 % (37.2-46.3); HGB 12.3 g/dL (12.0-15.0); MCH 31.1 pg (27.0-32.0); MCHC 31.6 g/dL (32.0-37.0); MCV 98.2 FL (80.0-97.0); Mean Platelet Volume 9.4 FL (9.5-12.2); NRBC Per 100 WBC 0 X 10*3/uL (0.00-0.01); Platelet Count 258 X 10*3/uL (140-440); RBC 3.96 X 10*6/uL (4.10-5.20); RDW 12.7 % (11.5-14.5); WBC 9.12 X 10*3/uL (4.50-10.00)
[2023-08-25 16:56] LABS: ALT 22 U/L (8-44); AST 16 U/L (13-35); Albumin 4.4 g/dL (3.8-4.9); Albumin/Globulin Ratio 1.83 Ratio (1.60-3.17); Alkaline Phosphatase 58 U/L (41-126); Blood Urea Nitrogen 42.3 mg/dL (9.0-27.0); Calcium 10.2 mg/dL (8.7-10.3); Carbon Dioxide 26.2 mmol/L (21.6-31.8); Chloride 102 mmol/L (96-109); Globulin 2.4 g/dL (1.6-3.3); Glucose 107 mg/dL (70-110); Potassium 5.7 mmol/L (3.5-5.5); Sodium 140 mmol/L (135-145); Total Bilirubin 0.3 mg/dL (0.3-1.2); Total Protein 6.8 g/dL (6.2-8.2)
== END | disposition home or self-care (01) ==
LOC: LABPAT 11:48
PROVIDERS: ATTEND Orthopaedic Surgery
DX: Z01.812 Encounter for preprocedural laboratory examination (principal); Z22.322 Carrier or suspected carrier of Methicillin resistant Staphylococcus aureus; M17.12 Unilateral primary osteoarthritis, left knee; I44.4 Left anterior fascicular block; R94.31 Abnormal electrocardiogram [ECG] [EKG]
CPT/HCPCS: 36415; 80053; 83036; 85027; 85610; 85730; 87070; 93005

== ENCOUNTER 2023-09-16 05:55 | Day surgery (SDC) | payer MEDICARE, OTHER ==
[2023-09-09 09:56] VITALS: BMI 50.4
[2023-09-16] MEDS ORDERED: TRANEXAMIC 1,000 MG/100ML-NACL 1,000 MG in SALINE 1 100ML.BAG IV PRN (06:00)
[2023-09-16] MEDS ORDERED: TRANEXAMIC 1,000 MG/100ML-NACL 1,000 MG in SALINE 1 100ML.BAG IVPB PRN (06:00)
[2023-09-16] MEDS: LACTATED RINGERS 1,000 ML IV ONE ×2 (06:13→17:18)
[2023-09-16 06:50] LABS: Glucose,Whole Blood 149 mg/dL (70-110)
[2023-09-16] MEDS: MIDAZOLAM 2 MG/2 ML VIAL IVP ONE (06:56)
[2023-09-16] MEDS ORDERED: MIDAZOLAM 2 MG/2 ML VIAL IV PRN (07:00)
[2023-09-16] MEDS: DEXAMETHASONE SOD PHOSPHATE 10 MG/ML 1 ML VIAL IV PRN (07:10)
[2023-09-16] MEDS: ACETAMINOPHEN TAB 500 MG TAB PO PRN (07:10)
[2023-09-16] MEDS: ONDANSETRON 4 MG/2 ML VIAL IVP PRN (07:11)
[2023-09-16] MEDS: DOCUSATE 100 MG CAP PO PRN (07:11)
[2023-09-16] MEDS: KETOROLAC 15 MG/ML 1 ML VIAL IVP PRN (07:11)
[2023-09-16] MEDS: oxyCODONE ER 10 MG TAB.ER.12H PO PRN (07:11)
[2023-09-16] MEDS: FAMOTIDINE 20 MG/2 ML VIAL IVP PRN (07:11)
[2023-09-16] MEDS ORDERED: GLYCOPYRROLATE 0.2 MG/ML 2 ML VIAL ONE (07:36)
[2023-09-16] MEDS ORDERED: HYDROmorphone (PF) 1 MG/ML ONE (07:36)
[2023-09-16] MEDS ORDERED: DEXAMETHASONE SOD PHOSPHATE 4 MG/ML 1 ML VIAL ONE (07:36)
[2023-09-16] MEDS ORDERED: PROPOFOL 10 MG/ML 20 ML VIAL IV ONE (07:36)
[2023-09-16] MEDS ORDERED: TRANEXAMIC 1,000 MG/100ML-NACL PREMIX BAG ONE (07:36)
[2023-09-16] MEDS ORDERED: SUCCINYLCHOLINE CHLORIDE 200 MG/10 ML VIAL IV ONE (07:36)
[2023-09-16] MEDS ORDERED: LIDOCAINE 1% INJ 10MG/ML (20 ML MDV) ONE (07:36)
[2023-09-16] MEDS ORDERED: ROPIVACAINE 5 MG/ML 30 ML VIAL ONE (07:36)
[2023-09-16] MEDS ORDERED: fentaNYL (PF) 50 MCG/ML 2 ML AMP ONE (07:36)
[2023-09-16] MEDS ORDERED: ROCURONIUM 10 MG/ML (5 ML VIAL) IV ONE (07:36)
[2023-09-16] MEDS ORDERED: NEOSTIGMINE 1 MG/ML 10 ML VIAL ONE (07:36)
--- NOTE | 2023-09-16 07:37 | P.ANPRN ---
Procedure Note - Anesthesia - Nerve Block Performed Left Adductor Canal Single Date of Procedure: 09/16/23 Procedure Start Time: 06:55 Procedure Stop Time: 07:00 Location of Patient: PreOp Indication: Acute Post-Operative Pain, Analgesia, Requested by Surgeon Sedation Type: Sedate with meaningful contact maintained Preparation: Sterile Prep Position: Supine Catheter: None Needle Types: Pajunk Needle Gauge: 21 Ultrasound used to visualize needle placement: Yes Ultrasound used to observe medication spread: Yes Injectate: 0.5% Ropivacaine (see comment for volume) (Ropiv 20ml+dexamethason 4mg) Blood Aspirated: No Pain Paresthesia on Injection Noted: No Resistance on Injection: Normal Image Stored and Saved: Yes Events: Uneventful and Well Tolerated
[2023-09-16] MEDS: ceFAZolin 3 GM in SODIUM CHLORIDE 0.9% 100 ML IVPB PRN (07:41)
--- NOTE | 2023-09-16 07:41 | P.ANPRN ---
Procedure Note - Anesthesia - Nerve Block Performed Left iPack Single Time Out Performed: Yes Date of Procedure: 09/16/23 Procedure Start Time: 07:00 Procedure Stop Time: 07:05 Location of Patient: PreOp Indication: Acute Post-Operative Pain, Analgesia, Dx/Pain Location, Requested by Surgeon Sedation Type: Sedate with meaningful contact maintained Preparation: Sterile Prep Position: Right Lateral Needle Types: Pajunk Needle Gauge: 21 Ultrasound used to visualize needle placement: Yes Ultrasound used to observe medication spread: Yes Injectate: 0.5% Ropivacaine (see comment for volume) (Ropiv 25ml+[id number]) Blood Aspirated: No Pain Paresthesia on Injection Noted: No Resistance on Injection: Normal Image Stored and Saved: Yes Events: Uneventful and Well Tolerated
[2023-09-16] MEDS: ROPIVACAINE/EPI/CLONIDINE/KET 50 ML SYRINGE MISCELLANE PRN (08:17)
[2023-09-16] MEDS ORDERED: MAGNESIUM HYDROXIDE 2,400 MG/30 ML CUP PO PRN (10:06)
[2023-09-16] MEDS ORDERED: TEMAZEPAM 15 MG CAP PO PRN (10:06)
[2023-09-16] MEDS ORDERED: HYDROmorphone 0.5 MG/0.5 ML SYRINGE IVP PRN (10:06)
[2023-09-16] MEDS ORDERED: HYDROcodone/APAP 5-325MG 1 EACH TAB PO PRN (10:06)
[2023-09-16] MEDS ORDERED: NA PHOS,M-B/NA PHOS,DI-BA 133 ML ENEMA RECTAL PRN (10:06)
[2023-09-16] MEDS ORDERED: HYDROmorphone 1 MG/ML 1 ML SYRINGE IVP PRN (10:06)
[2023-09-16] MEDS ORDERED: bisacodyL 10 MG SUPP RECTAL PRN (10:06)
[2023-09-16] MEDS ORDERED: NALOXONE 0.4 MG/ML 1 ML VIAL IV PRN (10:06)
--- NOTE | 2023-09-16 10:06 | P.OP ---
Date of Procedure: 09/16/23 Preoperative Diagnosis: 1. Severe left knee osteoarthritis 2. BMI 50.7 Postoperative Diagnosis: Same Procedure(s) Performed: 1. Left total knee arthroplasty 2. Computer assisted musculoskeletal navigation using CT/MRI images Implants: 1. [employer] [place] [employer] CR Femur Size #4 2. [employer] [place] Tibial Base Size #4 3. [place] [employer] CS/PS poly Size #9 4. [place] [employer] all poly patella, Size #29 Anesthesia: GUANACO, regional Surgeon: Yaniv Hatfield [employer]al #1: Fidelia Choudhury Estimated Blood Loss (ml): 200 IV fluids (ml): 1,000 Pathology: none sent Condition: stable Disposition: PACU Indications for Procedure: I met with the patient preoperatively in the office setting and discussed treatment of their symptomatic knee arthritis. They failed a long course of nonsurgical treatment and elected to proceed with an elective total knee replacement. I discussed the potential risks and complications at length and gave them ample time to ask questions. Risks discussed included: risks from anesthesia, superficial site surgical infection, acute and/or chronic periprosthetic joint infection, delayed wound healing, drainage, wound necrosis, instability, stiffness, stiffness requiring manipulation and/or revision surgery, damage to local blood vessels or nerves, aseptic loosening of the implants, extensor mechanism issues including disruption, patellar maltracking, avascular necrosis etc., continued or worsened knee pain, generalized dissatisfaction with surgical outcome, need for revision surgery, an inability to regain preinjury level of function, DVT, PE, other medical complications, and possibly loss of life or limb. The patient voiced their understanding that while these are the most common complications other less common complications are possible. They provided both their verbal and written consent to go forward with surgery. Operative Findings: Severe tricompartmental osteoarthritis Description of Procedure: The patient was identified in preoperative holding and the correct operative extremity was verified and marked with a marker. I reviewed the consent form with the patient at length. All of their questions were answered. The patient was given a block by anesthesia. They were then brought back to the operating room. They were transferred onto the operating room table where a general an esthetic, preoperative antibiotics, and tranexamic acid were administered by anesthesia. A tourniquet was applied to the proximal aspect of the operative extremity. The contralateral extremity was padded under the heel and secured to the operating room table with a nonsterile blue towel and tape. The ipsilateral arm was carefully draped across the patient's chest and secured with a pillow and foam. A post was applied over the lateral aspect of the ipsilateral thigh and a bolster was placed under the ipsilateral foot. I verified that the operative extremity was stable and the knee was flexed to 90. The operative extremity was then placed in a leg hameed, nonsterile drapes were applied, and the extremity was prepped and draped sterilely in the standard sterile fashion. Prior to starting surgery timeout was performed identifying the correct patient, operative extremity, and procedure. The leg was then elevated, exsanguinated with an Esmarch bandage, and the tourniquet was inflated. An anterior midline incision was made sharply with a scalpel. Once I had dissected deep to the superficial fascial layer medial and lateral flaps were elevated. A medial parapatellar arthrotomy was created. Upon opening the knee joint there were diffuse arthritic changes in all 3 compartments. The anterior horn of the medial meniscus were sharply released and a medial release was performed around the posterior medial corner of the knee to facilitate retractor placement. The fat pad was excised with electrocautery. The patella was found to be severely arthritic and a provisional cut was made with a sagittal saw to facilitate mobilization of the extensor mechanism during the procedure. Remnants of the ACL and PCL were then excised from the notch. 4 mm pins were then placed within the incision in the medial distal femur and proximal tibia. Arrays were applied to the pins and I verified they were completely tightened. The knee was then registered with the Motiga robot and manipulations in implant position were made to balance the knee and opitmize implant position. Using the Uri robotic saw all cuts were made in accordance with our plan. After all bony fragments had been removed the cuts were verified with the planar probe. The tibia was then subluxed forward and sized. The knee was brought into flexion and a lamina lime spreader was placed to allow removal of the meniscal remnants both medially and laterally as well as posterior osteophytes. Local anesthetic was then infiltrated around the joint capsule. Trial implants were then placed within the knee. Range of motion and collateral ligament tension was then evaluated. Adjustments in implant size and position were then made accordingly. Once the knee was felt to be appropriately balanced the Uri pins were removed. The patella was then recut, sized, and punched. A trial patellar button was then placed. With the trial components in place, the patella tracked midline. The femur was then drilled and the trial component removed. The trial tibial component was then appropriately rotated, pinned, and prepared for the keel. All trial components were then removed from the knee. The knee was thoroughly irrigated with pulsatile lavage. Cement was prepared via vacuum mixing in a bowl on the back table. I then hand pressurized cement into the femur and tibia and placed the implants beginning with the tibial base tray and poly liner, femoral component, and finally the patellar button. All extruded cement was removed including from the pin sites. Once the cement had hardened the knee was evaluated one final time with the final polyethylene liner in place. The knee had full extension and flexion and felt stable to varus and valgus stress throughout the arc of motion. The tourniquet was released and with the tourniquet down the patella tracked midline. All bleeders were controlled with electrocautery. The knee was then soaked for 3 minutes with a dilute Betadine soak. The knee was thoroughly irrigated using 3 L of sterile saline and pulsatile lavage. The extensor mechanism was then reapproximated using pop off Vicryl sutures followed by a running barbed suture. The knee was then closed in layers with a 0 strata fix for the deep fascial layer, 2-0 strata fix for the superficial subcutaneous layer and Monocryl and Steri-Strips for the skin. A sterile dressing was applied. I verified that all instrument, sponge, and sharp counts were correct. The patient was then transferred off the operating room table, extubated, and brought to recovery having tolerated the procedure well. Fidelia Choudhury NP was required as a skilled executive personal assistant due to the complexity of surgery for patient positioning, draping, exposure and retraction, closure of wound, and application of dressing. PLAN: The patient can weight-bear as tolerated on the operative extremity. DVT prophylaxis with aspirin 81 mg twice a day based on preoperative risk stratification. Follow-up in the office in 2 weeks for wound check and x-rays of the knee including an AP and lateral.
[2023-09-16 10:31] LABS: Glucose,Whole Blood 199 mg/dL (70-110)
[2023-09-16] MEDS: HYDROmorphone 0.5 MG/0.5 ML SYRINGE IVP PRN ×2 (10:44→18:25)
--- NOTE | 2023-09-16 11:03 | XR ---
EXAMINATION TYPE: XR knee limited LT DATE OF EXAM: 09/16/2023 10:31 AM CLINICAL INDICATION:Female, 68 years old with history of s/p tka, assess alignment; PHH COMPARISON: None. TECHNIQUE: XR knee limited LT; examined in Frontal, lateral and oblique projections. FINDINGS: Status post total knee arthroplasty changes with hardware in appropriate alignment and in tact. No evidence of fracture. Subcutaneous lucencies and lucencies within the joint consistent with surgical changes. IMPRESSION: Status post total knee arthroplasty changes with hardware intact and appropriate alignment. No fractu res identified.
[2023-09-16] MEDS: INSULIN ASPART (NovoLOG) 100 UNIT/ML VIAL SQ ONE (14:24)
[2023-09-16] MEDS: LACTATED RINGERS 1,000 ML IV SCH (17:39)
[2023-09-16] MEDS: ceFAZolin 3 GM in SODIUM CHLORIDE 0.9% 100 ML IVPB SCH (18:25)
[2023-09-16] MEDS: ASPIRIN 81 MG PO SCH (21:46)
[2023-09-16] MEDS: SENNOSIDES-DOCUSATE SODIUM 1 EACH TAB PO SCH (21:46)
[2023-09-16] MEDS: HYDROcodone/APAP 5-325MG 1 EACH TAB PO PRN (21:46)
[2023-09-17 09:23] VITALS: BP 151/73; PULSE 102; RESP 17; TEMP 98.1
--- NOTE | 2023-09-17 09:38 | P.DS ---
Providers Attending physician: Yaniv Hatfield Consults: 09/16/23 10:10 Consult Physician Routine Consulting Provider: Pierre Church Consult Reason/Comments: medical management Do you want consulting provider notified?: Yes Primary care physician: [facility] Course: The patient is a very pleasant 68-year-old female who was admitted under my care yesterday for an elective total knee replacement. Following an Acute surgery she was transferred to the orthopedics floor. She received 2 doses of postoperative antibiotics. She was transitioned from IV to oral pain medications. She was seen on postoperative day #1 and was doing well. She was up in a chair. The dressing over her knee was intact. There is mild swelling in the knee. She is neurovascularly intact. She would like to go home and her discharge is pending physical therapy and internal medicine evaluation. Plan - Discharge Summary Discharge Rx Participant: No New Discharge Prescriptions: New Aspirin [Adult Low Dose Aspirin EC] 81 mg PO BID #1 tab Omeprazole 20 mg PO DAILY #30 tab Doxycycline [Vibramycin] 100 mg PO Q12HR #28 capsule HYDROcodone/APAP 7.5-325MG [[place] 7.5-325] 1 - 2 tab PO Q6HR PRN #32 tab PRN Reason: Pain Sennosides-Docusate Sodium [Senokot-S] 1 tab PO BID #60 tablet Ondansetron Odt [Zofran Odt] 4 mg PO Q8HR PRN #14 tab PRN Reason: Nausea No Action buPROPion HCL [Wellbutrin XL] 450 mg PO QAM Atorvastatin [Lipitor] 10 mg PO HS Olmesartan/Amlodipin/Hcthiazid [Tribenzor 40-5-25 mg Tablet] 1 each PO QAM Letrozole 2.5 mg PO HS Levothyroxine Sodium [Synthroid] 150 mcg PO QAM Calcium Carbonate [Calcium] 600 mg PO DAILY Cinnamon Bark [Cinnamon] 500 mg PO DAILY Ascorbic Acid [Vitamin C] 500 mg PO DAILY Acetaminophen [Tylenol Arthritis] 650 mg PO Q8H PRN PRN Reason: Pain Celecoxib [Celebrex] 200 mg PO QAM Alendronate Sodium [Fosamax] 70 mg PO SUNG Menthol [Biofreeze] 1 applic TOPICAL DAILY PRN PRN Reason: Pain Discharge Medication List Atorvastatin [Lipitor] 10 mg PO HS 12/30/16 [History] Olmesartan/Amlodipin/Hcthiazid [Tribenzor 40-5-25 mg Tablet] 1 each PO QAM 12/30/16 [History] buPROPion HCL [Wellbutrin XL] 450 mg PO QAM 12/30/16 [History] Calcium Carbonate [Calcium] 600 mg PO DAILY 02/27/19 [History] Cinnamon Bark [Cinnamon] 500 mg PO DAILY 02/27/19 [History] Letrozole 2.5 mg PO HS 02/27/19 [History] Levothyroxine Sodium [Synthroid] 150 mcg PO QAM 02/27/19 [History] Acetaminophen [Tylenol Arthritis] 650 mg PO Q8H PRN 03/15/22 [History] Alendronate Sodium [Fosamax] 70 mg PO SUNG 03/15/22 [History] Ascorbic Acid [Vitamin C] 500 mg PO DAILY 03/15/22 [History] Menthol [Biofreeze] 1 applic TOPICAL DAILY PRN 03/15/22 [History] Celecoxib [Celebrex] 200 mg PO QAM 09/09/23 [History] Aspirin [Adult Low Dose Aspirin EC] 81 mg PO BID #1 tab 09/16/23 [Rx] Doxycycline [Vibramycin] 100 mg PO Q12HR #28 capsule 09/16/23 [Rx] HYDROcodone/APAP 7.5-325MG [[place] 7.5-325] 1 - 2 tab PO Q6HR PRN #32 tab 09/16/23 [Rx] Omeprazole 20 mg PO DAILY #30 tab 09/16/23 [Rx] Ondansetron Odt [Zofran Odt] 4 mg PO Q8HR PRN #14 tab 09/16/23 [Rx] Sennosides-Docusate Sodium [Senokot-S] 1 tab PO BID #60 tablet 09/16/23 [Rx] Follow up Appointment(s)/Referral(s): Yaniv Hatfield MD [Medical Doctor] - 2 Weeks Activity/Diet/Wound Care/Special Instructions: May bear wt as tolerated w walker. Keep dressing intact until f/u visit. May shower 48h post op. Report any problems to our office. [phone]. Discharge Disposition: HOME WITH HOME HEALTH SERVICES
[2023-09-17 09:46] LABS: Basophils # (A) 0.02 X 10*3/uL (0.00-0.10); Basophils % (A) 0.2 %; Eosinophils # (A) 0 X 10*3/uL (0.04-0.35); Eosinophils % (A) 0 %; HCT 31.7 % (37.2-46.3); HGB 10.3 g/dL (12.0-15.0); Lymphocytes # (A) 1.13 X 10*3/uL (0.90-5.00); MCH 31.6 pg (27.0-32.0); MCHC 32.5 g/dL (32.0-37.0); MCV 97.2 FL (80.0-97.0); Mean Platelet Volume 9.5 FL (9.5-12.2); Monocytes # (A) 0.87 X 10*3/uL (0.20-1.00); NRBC Per 100 WBC 0 X 10*3/uL (0.00-0.01); Neutrophils % (A) 83.2 %; Platelet Count 240 X 10*3/uL (140-440); RBC 3.26 X 10*6/uL (4.10-5.20); RDW 12.6 % (11.5-14.5)
== END 2023-09-17 11:13 | disposition home health service (06) ==
LOC: OR 05:55 → 4SSUR 09:55 → OR 09-17 11:13
PROVIDERS: ATTEND Orthopaedic Surgery
DX: M17.12 Unilateral primary osteoarthritis, left knee (principal); Z68.43 Body mass index [BMI] 50.0-59.9, adult; Z79.82 Long term (current) use of aspirin; Z79.899 Other long term (current) drug therapy; Z79.811 Long term (current) use of aromatase inhibitors
CPT/HCPCS: 0055T; 27447; 64447; 64999; 84132; 85025

== ENCOUNTER → 2024-04-17 | Outpatient (CLI) | payer MEDICARE, OTHER ==
--- NOTE | 2024-04-17 11:56 | BD ---
EXAMINATION TYPE: Axial Bone Density DATE OF EXAM: 04/17/2024 CLINICAL HISTORY: 69 years old Female. ICD-10 CODE: M8588 DISRD OF BONE DENSITY Height: 61.25 Weight: 270.7 FRAX RISK QUESTIONS: Alcohol (3 or more units per day): no Family History (Parent hip fracture): no Glucocorticoids (More than 3mos): no (Ex: prednisone, prednisolone, methylprednisolone, dexamethasone, and hydrocortisone). History of Fracture in Adulthood: no Secondary Osteoporosis: 1. Type 1 Diabetes: no 2. Hyperthyroidism: no 3. Menopause before 45: yes 4. Malnutrition: no 5. Chronic liver disease: no Rheumatoid Arthritis: no Current Tobacco Use: no RISK FACTORS HISTORY OF: Hip Fracture (Right/Left): no Spine Fracture: no History of Wrist Fracture: no Surgery to Spine/Hip(right/left)/Wrist (right/left): no MEDICATIONS: Thyroid Medications: Synthyroid How Long: since 2007 Osteoporosis Medications: Fosamax weekly How Long: since 2007 EXAM MEASUREMENTS: Bone mineral densitometry was performed using the [facility] System. Bone mineral density as measured about the Lumbar spine is: ----- L1-L4(G/cm2): 1.276 T Score Values are as follows: ----- L1: 2.4 ----- L2: -0.3 ----- L3: 0.8 ----- L4: 0.3 ----- L1-L4: 0.8 Z Score Values are as follows: ----- L1: 2.9 ----- L2: 0.2 ----- L3: 1.3 ----- L4: 0.8 ----- L1-L4: 1.3 Bone mineral density has: increased 8.8 % since study of: 07/20/2021 Bone mineral density about the R hip (g/cm2): 0.850 Bone mineral density about the L hip (g/cm2): 0.834 T Score values are as follows: -----R Neck: -1.4 -----L Neck: -1.3 -----R Total: -1.3 -----L Total: -1.4 Z Score values are as follows: -----R Neck: -0.5 -----L Neck: -0.3 -----R Total: -0.6 -----L Total: -0.7 Bone mineral density has: increased 1.9 % since study of: 07/20/2021 FRAX%s: The graph provided illustrates a 7.8% chance for a major osteoporotic fx and a 0.9% chance fo r the hips probability for fx in 10 years time. IMPRESSION: Osteopenia (T Score between -2.5 and -1). There is slightly increased risk of fracture and the patient may be considered for treatment. Re-Screen 2-5 years. NOTE: T-SCORE=SD OF THE YOUNG ADULT MEAN. [facility], , 04/17/2024 11:53 AM
--- NOTE | 2024-04-17 15:40 | CT ---
EXAMINATION TYPE: CT ChestAbdPelvis wo con CT DLP: 1128 mGycm, Automated exposure control for dose reduction was used. DATE OF EXAM: 04/17/2024 12:22 PM COMPARISON: CT chest abdomen and pelvis 08/02/2023, 05/05/2023, 10/29/2022 CLINICAL INDICATION:Female, 69 years old with history of C50.412, C49.9, M85.9, I10; PHH, f/u breast ca Technique: Multiple axial images of the chest, abdomen, and pelvis were obtained without the administ ration of intravenous oral contrast. This was evaluation. Two-dimensional coronal and sagittal recons tructions were obtained. Findings: CHEST: Evaluation is limited due to lack of intravenous contrast. LUNGS/ PLEURA: No pleural effusion, pneumothorax, or focal consolidation. Linear scarring within the bilateral lower lobes redemonstrated. No suspicious pulmonary nodule or mass. AIRWAY: Patent and unremarkable.. HEART: Mildly enlarged. No pericardial effusion.. Mild coronary arterial calcifications. Mitral annul us calcifications.. MEDIASTINUM: No gross evidence of adenopathy. VASCULATURE: No aortic aneurysm. MUSCULOSKELETAL: No acute osseous abnormalities. No aggressive osseous lesion. DISH throughout the mi d and lower thoracic spine. SOFT TISSUES/LYMPH NODES: No axillary adenopathy. Stable postsurgical changes of the left breast with spiculated density measuring up to 1.7 cm. LOWER NECK: No significant findings. ABDOMEN: ABDOMEN LIVER: Unremarkable noncontrast appearance. GALLBLADDER AND BILE DUCTS: Unremarkable. PANCREAS: Fatty infiltration. SPLEEN: Unremarkable noncontrast appearance. ADRENAL GLANDS: Unremarkable noncontrast appearance. KIDNEYS AND URETERS: No evidence of hydronephrosis or renal calculus. Similar nonspecific bilateral p erinephric fat stranding. PELVIS BLADDER: Incompletely distended but grossly unremarkable. REPRODUCTIVE: Unremarkable noncontrast appearance. ABDOMEN & PELVIS STOMACH AND BOWEL: Stomach and duodenum are unremarkable. Distal colonic diverticulosis without evide nce for acute diverticulitis. The appendix is within normal limits with appendicolith identified. No evidence of bowel obstruction. PERITONEUM: No evidence of pneumoperitoneum or free fluid. VASCULATURE: Mild atherosclerotic calcifications are present throughout the abdominal aorta and its b ranches. No abdominal aortic aneurysm. MUSCULOSKELETAL: No acute osseous abnormalities . Multilevel degenerative changes of visualized spine . Grade 1 anterolisthesis of L3 on L4. No aggressive osseous lesion. Degenerative changes of both hip s. LYMPH NODES: No gross evidence for lymphadenopathy. SOFT TISSUE/ABDOMINAL WALL: Tiny fat filled umbilical hernia. IMPRESSION: 1. No evidence for recurrent tumor or metastasis within the chest, abdomen and pelvis within limitati ons of a noncontrast exam. 2. Colonic diverticulosis without evidence for acute diverticulitis. [facility], , 04/17/2024 3:38 PM
--- NOTE | 2024-04-18 12:17 | MM ---
Reason for Exam: Screening (asymptomatic). Last mammogram was performed 1 year(s) and 1 month(s) ago. Patient History: Menarche at age 13. Patient has no children. Postmenopausal. Breast cancer, left, age 61. Other cancer. Previous chest radiation therapy at age 61. Previous chemotherapy at age 61. 12/31/2016, Lumpectomy on the Left side. 03/06/2019, Benign Core Biopsy on the left side. 12/31/2016, Malignant Core Biopsy on the left side. 2016, Chemotherapy. 2016, Radiation Therapy on the left side. Prior Study Comparison: 03/09/2021 Bilateral Diagnostic Mammogram, [facility]. 03/17/2022 Bilateral MG 3D screening mammo w/cad, [facility]. 03/18/2023 Bilateral MG 3D screening mammo w/cad, [facility]. Tissue Density: There are scattered areas of fibroglandular density. Findings: Analyzed By CAD. There is no suspicious group of microcalcifications or new suspicious mass in either breast. Stable postoperative distortion left breast. Overall Assessment: Benign, BI-RAD 2 Management: Screening Mammogram of both breasts in 1 year. . Patient should continue monthly self-breast exams. A clinical breast exam by your physician is recommended on an annual basis. This exam should not preclude additional follow-up of suspicious palpable abnormalities. Note on Nidia scores and lifetime risk: 1. A Nidia score greater than 3% is considered moderate risk. If this is the case, consider specialist referral to assess eligibility for a risk reducing agent. 2. If overall lifetime risk for the development of breast cancer is 20% or higher, the patient may qualify for future screening with alternating mammogram and breast MRI. [facility], , 04/18/2024 12:14 PM. Electronically signed and approved by: Spike Spangler M.D. Radiologis
== END | disposition home or self-care (01) ==
LOC: RADMAMWWP 10:28
PROVIDERS: ATTEND Internal Medicine Hematology & Oncology
DX: Z12.31 Encounter for screening mammogram for malignant neoplasm of breast (principal); M85.9 Disorder of bone density and structure, unspecified; C50.412 Malignant neoplasm of upper-outer quadrant of left female breast; M85.88 Other specified disorders of bone density and structure, other site; Z71.3 Dietary counseling and surveillance; I10 Essential (primary) hypertension; E78.5 Hyperlipidemia, unspecified; E03.9 Hypothyroidism, unspecified; M81.8 Other osteoporosis without current pathological fracture; K57.30 Diverticulosis of large intestine without perforation or abscess without bleeding; Z78.0 Asymptomatic menopausal state; R92.323 Mammographic fibroglandular density, bilateral breasts
CPT/HCPCS: 71250; 74176; 77063; 77067; 77080

== ENCOUNTER → 2024-10-23 | Outpatient (CLI) | payer MEDICARE, OTHER ==
--- NOTE | 2024-10-23 14:03 | CT ---
EXAMINATION TYPE: CT ChestAbdPelvis wo con DATE OF EXAM: 10/23/2024 COMPARISON: Prior CT April 17, 2024 and older studies CLINICAL INDICATION: Female, 69 years old with history of C50.412 MALIG NEOPLASM OF UPPER-OUTER QUADR ANT OF, Breast ca routine follow up, TECHNIQUE: CT scan of the thorax, abdomen and pelvis is performed without IV contrast. CT DLP: 1609.5 mGycm. Automated Exposure Control for Dose Reduction was Utilized. FINDINGS: Within the limitations of a noncontrast study, the following observations are made. LUNGS: Mild linear scarring in both lower lungs is present. No suspicious nodules or masses. HEART: Size within normal limits. Mild coronary artery calcification. Calcification or surgical pendleton e at level of the mitral valve is redemonstrated. MEDIASTINUM: There are no greater than 1 cm hilar or mediastinal lymph nodes. No pericardial effusi on is seen. Prominent right and left pulmonary arteries raises concern for underlying pulmonary stas ry hypertension. OTHER: Scarring in the upper outer aspect left breast redemonstrated. LIVER/GB: No significant abnormality is appreciated. PANCREAS: Moderate to severe generalized atrophy redemonstrated. SPLEEN: No significant abnormality is seen. ADRENALS: No significant abnormality is seen. KIDNEYS: Cortical thinning bilaterally redemonstrated. No renal stones or hydronephrosis seen bilater ally BOWEL: Distal colonic diverticulosis redemonstrated. No abnormal small or large bowel dilatation. GENITAL ORGANS: No gross abnormality seen. LYMPH NODES: No greater than 1cm abdominal or pelvic lymph nodes are appreciated. OSSEOUS STRUCTURES: Scoliotic curvature in the thoracic spine redemonstrated. Multilevel spurring and bridging osteophytes throughout the thoracic spine are redemonstrated. OTHER: No significant additional abnormality is seen. IMPRESSION: No suspicious new mass or adenopathy to suggest active neoplastic recurrence. [facility], , 10/23/2024 2:00 PM
== END | disposition home or self-care (01) ==
LOC: RADCTMAIN 10:17
PROVIDERS: ATTEND Internal Medicine Hematology & Oncology
DX: C49.9 Malignant neoplasm of connective and soft tissue, unspecified (principal); M85.9 Disorder of bone density and structure, unspecified; I10 Essential (primary) hypertension
CPT/HCPCS: 71250; 74176